=== PATIENT | female | born 1960 | race Caucasian/White ===

== ENCOUNTER 2021-06-28 18:08 | Emergency (ER) | payer MEDICARE ==
[2021-06-28 18:53] LABS: BASOPHIL 0.7 % (0-2); EOSINOPHIL 3.5 % (0-5); HCT 44.1 % (37.0-47.0); LYMPHOCYTE 47.1 % (15-48); MCH 33.5 pg (25.0-31.0); MCV 98.4 fL (78.0-100.0); MONOCYTE 6.7 % (0-12); MPV 9.1 fL (6.0-9.5); NEUTROPHIL 41.9 % (41-80); NRBC 0; PLT 261 K/uL (150-400); RBC 4.48 M/uL (4.20-5.40); RDW 12.8 % (11.5-14.0); WBC 8.4 K/uL (4.0-10.5)
[2021-06-28 19:16] LABS: BUN/CREAT RATIO (CALC) 11.5 RATIO; CREATININE 1.22 mg/dL (0.51-0.95); POTASSIUM 4.4 mmol/L (3.5-5.1)
== END 2021-06-29 06:24 | disposition home or self-care (01) ==
LOC: FER 18:08
PROVIDERS: Internal Medicine; Nurse Practitioner Family
DX: F10.129 Alcohol abuse with intoxication, unspecified (principal); Y90.8 Blood alcohol level of 240 mg/100 ml or more
CPT/HCPCS: 36415; 70450; 80048; 85025; G0480; J7120